=== PATIENT | male | born 1965 | race American Indian/Alaskan Native ===

== ENCOUNTER 2016-05-29 11:43 | Emergency (ER) | payer SELFPAY ==
[2016-05-29] MEDS ORDERED: NORVASC PO ONE (16:27)
[2016-05-29 17:21] LABS: Anion Gap 16 mmol/L; BUN/Creatinine Ratio 8.33; Blood Urea Nitrogen 10 mg/dL (9-20); Calcium 10.1 mg/dL (8.4-10.2); Carbon Dioxide 28 mmol/L (22-30); Chloride 99.6 mmol/L (98-107); Glucose 87 mg/dL (75-100); Potassium 3.8 mmol/L (3.6-5.0); Sodium 140 mmol/L (137-145)
[2016-05-29 17:26] LABS: Hematocrit 46.1 % (35.5-45.6); Hemoglobin 15.1 gm/dl (11.8-15.2); Mean Corpuscular HGB Conc 33 % (32-34); Mean Corpuscular Hemoglobin 28 pg (28-32); Mean Corpuscular Volume 85 fl (84-94); Platelet Count 249 K/mm3 (140-440); Red Blood Count 5.44 M/mm3 (3.65-5.03); Red Cell Distribution Width 14.9 % (13.2-15.2); White Blood Count 6.8 K/mm3 (4.5-11.0)
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
[2016-05-29 21:48] VITALS: BP 140/100
== END 2016-05-29 19:00 | disposition home or self-care (01) ==
LOC: ED 11:43
DX: R03.0 Elevated blood-pressure reading, without diagnosis of hypertension (principal); R51 Headache; F17.200 Nicotine dependence, unspecified, uncomplicated; V49.50XA Passenger injured in collision with unspecified motor vehicles in traffic accident, initial encounter; Y93.89 Activity, other specified; Y99.9 Unspecified external cause status; Y92.410 Unspecified street and highway as the place of occurrence of the external cause
CPT/HCPCS: 36415; 80048; 85027; 99283

== ENCOUNTER 2017-10-09 23:14 | Emergency (ER) | payer SELFPAY ==
[2017-10-09 23:25] VITALS: BP 157/108
[2017-10-09] MEDS ORDERED: MOTRIN PO ONE (23:41)
--- NOTE | 2017-10-10 03:36 | Emergency Department Report ---
ED ENT HPI - General Chief complaint: Dental/Oral Stated complaint: GUM AND EAR ACHE Time Seen by Provider: 10/10/17 03:35 Source: patient Mode of arrival: Ambulatory Limitations: No Limitations - History of Present Illness Initial comments: 52-year-old -[place] male with a past medical history of hypertension but does not know what his blood pressure medication is comes in today for right gum and ear pain 1 week. Patient reports that he is followed by [facility] but did not follow-up for this. Patient reports it is been taken Advil and ibuprofen which she reports has helped with this pain. Patient reports he is aware that he has bad gums and has an appointment next month to be seen for cleaning. Patient denies any fever chills or nausea no vomiting. Patient denies any hearing loss no popping of the ears. MD complaint: ear pain -: week(s) (1) Location: R ear Severity: severe Severity scale (0 -10): 8 Quality: aching Consistency: intermittent Improves with: NSAID Associated Symptoms: gum swelling. denies: fever - Related Data Previous Rx's Medication Instructions Recorded Last Taken Type Acetaminophen [Tylenol Arthritis] 650 mg PO Q8H #30 tablet.er 10/10/17 Unknown Rx Amoxicillin [Amoxicillin TAB] 875 mg PO BID #14 tablet 10/10/17 Unknown Rx Chlorhexidine Mouthwash [Peridex] 15 ml MM BID #1 bottle 10/10/17 Unknown Rx Allergies Allergy/AdvReac Type Severity Reaction Status Date / Time No Known Allergies Allergy Unverified 05/29/16 12:12 ED Dental HPI - General Chief complaint: Dental/Oral Stated complaint: GUM AND EAR ACHE Time Seen by Provider: 10/10/17 03:35 Source: patient Mode of arrival: Ambulatory Limitations: No Limitations - Related Data Previous Rx's Medication Instructions Recorded Last Taken Type Acetaminophen [Tylenol Arthritis] 650 mg PO Q8H #30 tablet.er 10/10/17 Unknown Rx Amoxicillin [Amoxicillin TAB] 875 mg PO BID #14 tablet 10/10/17 Unknown Rx Chlorhexidine Mouthwash [Peridex] 15 ml MM BID #1 bottle 10/10/17 Unknown Rx Allergies Allergy/AdvReac Type Severity Reaction Status Date / Time No Known Allergies Allergy Unverified 05/29/16 12:12 ED Review of Systems ROS: Stated complaint: GUM AND EAR ACHE Other details as noted in HPI Comment: All other systems reviewed and negative Constitutional: denies: chills, fever ENT: ear pain, dental pain Respiratory: denies: cough, shortness of breath, wheezing ED Past Medical Hx - Past Medical History Hx Hypertension: Yes - Surgical History Additional Surgical History: rt. inquinal hernia repair - Social History Smoking Status: Never Smoker Substance Use Type: None - Medications Home Medications: Home Medications Medication Instructions Recorded Confirmed Last Taken Type Acetaminophen [Tylenol Arthritis] 650 mg PO Q8H #30 tablet.er 10/10/17 Unknown Rx Amoxicillin [Amoxicillin TAB] 875 mg PO BID #14 tablet 10/10/17 Unknown Rx Chlorhexidine Mouthwash [Peridex] 15 ml MM BID #1 bottle 10/10/17 Unknown Rx ED Physical Exam - General Limitations: No Limitations General appearance: alert, in no apparent distress - Head Head exam: Present: atraumatic, normocephalic - Expanded ENT Exam Expanded Teeth exam: Present: fractured tooth # (32), gingival enlargement Throat exam: Negative: tonsillar erythema, tonsillomegaly - Neck Neck exam: Present: normal inspection, full ROM. Absent: tenderness, lymphadenopathy - Respiratory Respiratory exam: Present: normal lung sounds bilaterally. Absent: respiratory distress - Cardiovascular Cardiovascular Exam: Present: regular rate, normal rhythm. Absent: systolic murmur, diastolic murmur, rubs, gallop ED Course Vital Signs 10/09/17 23:18 Temperature 98.2 F Pulse Rate 65 Respiratory 18 Rate Blood Pressure 157/108 O2 Sat by Pulse 99 Oximetry ED Medical Decision Making - Medical Decision Making Patient has been evaluated by this provider fast track. Please take antibiotics as prescribed and use Peridex mouthwash as prescribed. Follow-up with her primary care provider in your dentist for further evaluation and treatment of her gingivitis. Critical care attestation.: If time is entered above; I have spent that time in minutes in the direct care of this critically ill patient, excluding procedure time. ED Disposition Clinical Impression: Gingivitis, acute, Right ear pain Disposition: TO HOME OR SELFCARE Is pt being admited?: No Does the pt Need Aspirin: No Condition: Stable Instructions: Gingivitis (ED) Additional Instructions: Please complete antibiotics as prescribed. Please use mouthwash as prescribed. It is very important for you to follow up with her primary care provider which is [facility] as well as her dentist. Prescriptions: Acetaminophen [Tylenol Arthritis] 650 mg PO Q8H #30 tablet.er Amoxicillin [Amoxicillin TAB] 875 mg PO BID #14 tablet Chlorhexidine Mouthwash [Peridex] 15 ml MM BID #1 bottle Referrals: PRIMARY CARE, [Primary Care Provider] - 3-5 Days Forms: Work/School Release Form(ED)
== END 2017-10-10 04:18 | disposition home or self-care (01) ==
LOC: ED 23:14
DX: K05.00 Acute gingivitis, plaque induced (principal); H92.01 Otalgia, right ear; I10 Essential (primary) hypertension
CPT/HCPCS: 99282